=== PATIENT | female | born 1980 | race Caucasian/White ===

== ENCOUNTER 2025-06-04 12:58 | Emergency (ER) | payer SELFPAY ==
[2025-06-04 13:01] VITALS: BP 141/88
[2025-06-04 14:47] VITALS: BP 145/90
--- NOTE | 2025-06-04 14:55 | ED.GENMED ---
History of Present Illness
General
Chief Complaint: Dizziness
Source: patient
Exam Limitations: none
Time Seen by Provider: 06/04/25 14:43
Nursing documentation reviewed up to this point in time: agreed with
History of Present Illness
History of Present Illness:
Patient to the emergency department from urgent care for evaluation of dizziness and chest pain. Patient states she woke this morning and describes the room is spinning. She had an episode of vomiting. Her brother drove her to urgent care. She
states that the dizziness was diminishing but still present. She reports no findings on her exam daily to explain her dizziness. She also reports that while there she developed a sensation that her heart was pounding, chest pain, shortness of
breath, tingling to extremities. She was then sent to the emergency department by EMS from urgent care. She is very anxious. She denies any prior history of similar symptoms. Heart rate on exam is in the mid 60s sinus rhythm. Reports left sided
chest pain, nonradiating. She was given full-strength aspirin by EMS and route to the emergency department. Pulse ox is 99% on room air. She has no headache. She is awake alert and oriented x 3
Past History
Past History
ED Past Medical History: None
ED Past Surgical History: None
Social History
Tobacco: Non-smoker
Alcohol: None
Drug: None
Personal:
Review of Systems
Review of Systems
Allergies reviewed?: Yes
All Other Systems: ROS reviewed and negative except as documented in HPI and ROS
Constitutional: Reports no symptoms
EENT: Reports no symptoms
Respiratory: Reports trouble breathing (Feels short of breath)
Cardiac: Reports chest pain and other (Sensation of heart pounding)
ABD/GI: Reports vomiting (1 episode of vomiting this morning)
: Reports no symptoms
Musculoskeletal: Reports no symptoms
Skin: Reports no symptoms
Neurological: Reports dizzy and other (Tingling to extremities)
Psychiatric: Reports no symptoms
Phy Exam
General Physical Exam
General Presentation: moderate distress
General age: appears stated age
General Skin: warm and dry
General Habitus: normal
General Mental: alert
General Hydration: appears well hydrated
Cardiovascular Exam
Cardiovascular Exam: regular rate/rhythm and no edema
Pulmonary Exam
Pulmonary Exam: lungs clear and no respiratory distress
Neurological Exam
Neurological Exam: alert, oriented x3, CN II-XII intact, no motor deficits, no sensory deficits and speech normal
NIH Stroke Score
Level of Consciousness: 0 - Alert
LOC questions: 0-Answers both correctly
LOC Commands: 0-Performs both correctly
Best Gaze: 0-Normal
Visual Guillen: 0=Normal, no visual loss
Facial palsy: 0=Normal, symmetrical
Motor - Right Arm: 0=No drift 10 seconds
Motor - Left Arm: 0=No drift 10 seconds
Motor - Right Le-No drift 5 seconds
Motor - Left Le-No drift 5 seconds
Limb Ataxia: 0-Absent
Sensation: 0-Normal
Best Language: 0-No aphasia
Dysarthria: 0-Normal
Extinction and Inattention: 0-No abnormality
Total Score:: 0
Musculoskeletal Exam
Musculoskeletal Exam: full ROM, no edema and neuro vasc intact
Skin Exam
Skin Exam: normal color, warm/dry and no rash
Psychiatric Exam
Psychiatric Exam: anxious
Course
Orders/Labs/Results
Orders:
Orders
06/04/25 13:04
ECG [Electrocardiogram (*1)] Urgent
Reason for Study: Chest Pain
EKG- Treatment ONCE
06/04/25 14:53
Ondansetron Injectable [Zofran] 4 mg IV NOW STA
diazePAM [Valium Injection] 5 mg IV NOW STA
06/04/25 14:54
CT Head W/o Iv Contrast Urgent
Comment:
Reason For Exam: dizziness
Test Result ONCE
06/04/25 15:12
Complete Blood Count/With Diff Urgent
Comprehensive Metabolic Panel Urgent
HCG, Serum Qualitative Screen Urgent
Troponin I Urgent
Urinalysis Reflex To Culture Urgent
Date Specimen was Collected: 06/04/25
Time Specimen was Collected: 15:05
Urine Microscopic Reflex Cult Urgent
06/04/25 17:24
Troponin I Urgent
Abnormal Lab Results
06/04/25
15:12
Absolute Neuts (auto) 6.8 H 10^3/uL
(1.4-6.5)
Lymphocytes % 20.4 L %
(20.5-51.1)
Creatinine 0.5 L mg/dL
(0.6-1.0)
Glucose 114 H mg/dl
(70-99)
Total Bilirubin 1.8 H mg/dl
(0.2-1.3)
Urine Ketones 3+ A
(Negative)
Ur Occult Blood Reflex 4+ A
(Negative)
Urine RBC 11-15 A /HPF
(0-2)
Urine Bacteria (Reflex) Few A
(Negative)
Urine Albumin (Reflex) 2+ A
(Neg - Trace)
06/04/25 15:12
06/04/25 15:12
Vital Signs
Initial and Last Documented VS:
Initial Vital Signs
Temp Pulse Resp BP Pulse Ox
97.7 F 63 16 141/88 93
06/04/25 13:01 06/04/25 13:01 06/04/25 13:01 06/04/25 13:01 06/04/25 13:01
Last Documented Vital Signs
Temp Pulse Resp BP Pulse Ox
97.7 F 61 22 139/94 98
06/04/25 13:01 06/04/25 16:45 06/04/25 16:45 06/04/25 15:00 06/04/25 16:45
*Pulse Oximetry
SaO2: 93
Oxygen Mode of Delivery: Room air
Patient hypoxic: no
*Critical Care Note
Total Time (30-74mins, 75-104mins- exclusive of procedures): Not Applicable
Update Note
Update Note:
Patient to the emergency department for evaluation of dizziness. Symptoms started this morning. She was evaluated at urgent care and advised to come to the emergency department. On exam she was awake alert and oriented. Vital signs are stable
and she remains afebrile. Labs reviewed WBC 9.4. CMP without concerning findings. UA negative for UTI. Troponin negative x [address] completed no findings to explain her symptoms. She was given IV fluids, Valium 5 mg IV with relief
of her dizziness. She is able to ambulate safely in her room no further nausea or vomiting. She will be discharged home. She was given a prescription for meclizine 25 mg 3 times daily as needed dizziness. She will follow-up with her PCP in the
a.m. She was given instructions on signs and symptoms to return to emergency department and she is agreeable with this plan
ED Attending Note
-
Portions of this chart may have been created with voice recognition software.� Occasional wrong word or��sound alike� substitutions may have occurred due to the inherent limitations of voice recognition software.
Discharge Plan
Departure
Patient Disposition: Home (Routine Discharge)
Date of Disposition: 06/04/25
Time of Disposition: 18:36
Patient with high blood pressure during this ER visit?: No
Condition: Good
Covid-19: Not Applicable
Discharge Problem:
Vertigo
Instructions: Vertigo (a Type of Dizziness) (DC)
Prescriptions:
New
meclizine 25 mg tablet
25 mg PO TID PRN (Reason: dizziness) Qty: 20 0RF
No Action
famotidine 20 MG tablet
20 mg PO BID Qty: 10 0RF
prednisone 50 MG tablet
50 mg PO DAILY Qty: 5 0RF
Referrals:
Ellie May DO [Family Provider, Family Practice] - Follow up in 2-3 days
Activity Restrictions/Additional Instructions:
Return to the emergency department for any changes in/worsening of your symptoms.
Interventions
Interventions:
*Risk Screen - Suicide Last Done: 06/04/25 15:08
*General Assessment Last Done: 06/04/25 17:57
*Neglect/Abuse Screening Last Done: 06/04/25 15:08
*ED- Fall Risk Assessment Last Done: 06/04/25 15:08
*ED COVID-19 Vaccine History Last Done: 06/04/25 15:08
*ED Influenza Vaccine History Last Done: 06/04/25 15:08
*Nursing Disposition Last Done: 06/04/25 18:45
ED- Cardiac Assessment Last Done: 06/04/25 15:08
ED- Neurological Assessment Last Done: 06/04/25 15:08
ED Swallowing Screen Last Done: 06/04/25 15:08
Discharge Date and Time
Discharge Date/Time: 06/04/25 18:46
Print Language: ISRAELI
[2025-06-04 15:00] VITALS: BP 139/94
[2025-06-04 15:09] VITALS: BMI 41.3
[2025-06-04] MEDS: VALIUM INJECTION 5 MG IV (15:12)
[2025-06-04] MEDS: ZOFRAN 4 MG IV (15:12)
[2025-06-04 15:37] LABS: Hematocrit 41.0 % (37.0-47.0); Hemoglobin 13.9 g/dL (12.0-16.0); Mean Corp Hgb Conc. 33.9 g/dL (33.0-37.0); Mean Corpuscular Volume 87.2 fL (81.0-99.0); Nucleated Red Blood Cells % 0 %; Platelet Count 333 10^3/uL (130-400); Red Cell Dist. Width 12.4 % (11.5-14.5)
[2025-06-04 15:39] LABS: Urine Character Clear (Clear)
[2025-06-04 15:51] LABS: HCG, Serum Qualitative Screen Negative
[2025-06-04 15:55] LABS: ALT (SGPT) 20 U/L (0-35); AST (SGOT) 22 U/L (14-36); Albumin 4.6 g/dl (3.5-5.0); Alkaline Phosphatase 58 U/L (38-126); Blood Urea Nitrogen 11 mg/dl (7-17); Calcium 9.5 mg/dl (8.4-10.2); Carbon Dioxide 22 mmol/L (22-30); Chloride 105 mmol/L (98-107); Estimated Creatinine Clearance > 125 ml/min; Glucose 114 mg/dl (70-99); Potassium 3.9 mmol/L (3.5-5.1); Sodium 135 mmol/L (135-145); Total Protein 7.7 g/dl (6.3-8.2); eGFR > 60.00
[2025-06-04 16:02] LABS: Troponin I < 0.012 ng/ml
[2025-06-04 16:15] LABS: Urine Squamous Cell >30 /LPF (Few)
[2025-06-04 16:16] LABS: Urine White Cell 0-2 /HPF (0-5)
[2025-06-04 18:03] LABS: Troponin I 0.014 ng/ml
== END 2025-06-04 18:46 | disposition home or self-care (01) ==
LOC: EMR 12:58
PROVIDERS: Nurse Practitioner; EMERGENCY PHYSICIAN Emergency Medicine; FAMILY PHYSICIAN Family Medicine
DX: R42 Dizziness and giddiness (principal); R07.9 Chest pain, unspecified; R11.2 Nausea with vomiting, unspecified
CPT/HCPCS: 96374; 96375; 99284; 70450; 80053; 81003; 81015; 84484; 84703; 85025; 93005